=== PATIENT | female | born 1990 | race Caucasian/White ===

== ENCOUNTER 2020-05-11 21:47 | Inpatient (IN) ==
[2020-05-11] MEDS ORDERED: MEPERIDINE 50 MG/1 ML VIAL IV PRN (22:00)
[2020-05-11] MEDS ORDERED: BUTORPHANOL 2 MG/ML VIAL IV PRN (22:00)
[2020-05-11] MEDS ORDERED: LACTATED RINGERS 1,000 ML IV SCH (22:00)
[2020-05-11] MEDS ORDERED: ONDANSETRON 4 MG/2 ML VIAL IV PRN (22:00)
[2020-05-11 23:03] LABS: Basophils # 0.1 10*3/uL (0.0-0.2); Basophils % 0.5 % (0.0-0.8); Eosinophils # 0.1 10*3/uL (0.0-0.87); Hematocrit 36.4 VOL% (35.7-47.0); Hemoglobin 11.6 GM/DL (12.0-16.0); Immature Granulocytes % 1.4 %; Immature Granulocytes Absolute 0.18 #; Lymphocytes # 2.7 10*3/uL (1.4-4.0); Mean Corpuscular HGB Conc 31.9 GM/DL (32-36); Mean Corpuscular Volume 84.7 FL (87-102); Mean Platelet Volume 9.2 FL (9.6-12.0); Monocytes % 8.5 % (1.7-12.7); Neutrophils % 67.6 % (38.7-73.9); Platelet Count 278 T/CUMM (130-400); Red Cell Distribution Width 15.9 % (9.3-17.3); White Blood Count 12.7 T/CUMM (4-12)
[2020-05-12] MEDS: CLINDAMYCIN INJ 900 MG in PREMIX 1 EACH IV SCH ×2 (08:40→19:03)
[2020-05-12] MEDS ORDERED: OXYTOCIN/LR 20 UNIT/1,000 ML BAG IV SCH (10:00)
[2020-05-12] MEDS ORDERED: ePHEDrine 50 MG/ML VIAL IV PRN (10:05)
[2020-05-12] MEDS ORDERED: FAMOTIDINE 20 MG/2 ML VIAL IV ONE (10:05)
[2020-05-12] MEDS ORDERED: hydrOXYzine HCL 25 MG/1 ML VIAL IM PRN (10:05)
[2020-05-12] MEDS ORDERED: diphenhydrAMINE 50 MG/1 ML VIAL IV PRN ×2 (10:05)
[2020-05-12] MEDS ORDERED: CITRIC ACID/SODIUM CITRATE 30 ML UDCUP PO ONE (10:05)
[2020-05-12] MEDS ORDERED: LACTATED RINGERS 250 ML IV PRN (10:05)
[2020-05-12] MEDS ORDERED: ONDANSETRON 4 MG/2 ML VIAL IV ONE (10:05)
[2020-05-12] MEDS ORDERED: LACTATED RINGERS 1,000 ML IV ONE (10:05)
[2020-05-12] MEDS ORDERED: PROMETHAZINE 25 MG/1 ML VIAL IM ONE (10:05)
[2020-05-12] MEDS ORDERED: NALOXONE 0.4 MG/ML VIAL IV PRN (10:05)
[2020-05-12] MEDS ORDERED: fentaNYL 2 MCG/ROPIV 0.2% EPID 100 ML EPIDURAL SCH (10:30)
[2020-05-12] MEDS ORDERED: LACTATED RINGERS 1,000 ML IV SCH (10:30)
[2020-05-12 12:47] LABS: Glucose,Urine (UA) Negative (Negative); Protein,Urine 1+ MG/DL; Urine Appearance Clear (Clear); Urine Color Yellow (Yellow)
[2020-05-12 12:48] LABS: Bacteria,Urine Few /HPF (Few); Bilirubin,Urine Negative (Negative); Blood, Urine Negative (Negative); Ketones,Urine 1+ mg/dL (Negative); Nitrite,Urine Negative (Negative); RBC,Urine Rare /HPF (0-4); Squamous Epithelial Cell,Urine Rare /HPF (0-10); Urine Urobilinogen < 2.0 EU/DL (0.2-1.0); WBC,Urine Rare /HPF (0-6)
[2020-05-12] MEDS ORDERED: miSOPROStoL 200 MCG TABLET ONE (14:18)
[2020-05-12] MEDS ORDERED: OXYTOCIN/LR 20 UNIT/1,000 ML BAG IV ONE ×2 (14:18→17:43)
[2020-05-12] MEDS ORDERED: TRANEXAMIC ACID 1,000 MG/10 ML VIAL ONE (14:18)
[2020-05-12] MEDS ORDERED: METHYLERGONOVINE 0.2 MG/1 ML AMP ONE (14:18)
[2020-05-12] MEDS ORDERED: CARBOPROST TROMETHAMINE 250 MCG/ML AMP IM ONE (14:18)
[2020-05-12 17:25] LABS: Cord Arterial Blood HCO3 16.9 MMOL/L
[2020-05-12 17:26] LABS: Cord Venous Blood HCO3 21.2 MMOL/L; Cord Venous Blood PCO2 40.9 MMHG; Cord Venous Blood PO2 25.8 MMHG
[2020-05-12] MEDS ORDERED: ACETAMINOPHEN 325 MG TABLET PO PRN (17:43)
[2020-05-12] MEDS ORDERED: MEASLES/MUMPS/RUBELLA VACCINE 0.5 ML VIAL SUBCUT ONE (17:43)
[2020-05-12] MEDS ORDERED: WITCH HAZEL PADS 100/JAR TOP PRN (17:43)
[2020-05-12] MEDS ORDERED: LANOLIN 50% CREAM 0.3 OZ TUBE TOP PRN (17:43)
[2020-05-12] MEDS ORDERED: BENZOCAINE 20%/MENTHOL 0.5% SPRAY 56 GM CAN TOP PRN (17:43)
[2020-05-12] MEDS ORDERED: DIPH/TET/ACEL PERT BOOSTER VACCINE 0.5 ML VIAL IM ONE (17:43)
[2020-05-12] MEDS ORDERED: HYDROCORTISONE 2.5% RECTAL CREAM 30 GM TUBE TOP PRN (17:43)
[2020-05-12] MEDS ORDERED: ONDANSETRON 4 MG/2 ML VIAL IV PRN (17:43)
[2020-05-12] MEDS ORDERED: BISACODYL 10 MG SUPP RECTAL PRN (17:43)
[2020-05-12] MEDS ORDERED: RHO(D) IMMUNE GLOBULIN 300 MCG SYRINGE IM ONE (17:43)
[2020-05-12] MEDS ORDERED: oxyCODONE/ACETAMINOPHEN 5-325 MG TABLET PO PRN (17:43)
[2020-05-12] MEDS: DOCUSATE SODIUM 100 MG CAPSULE PO SCH (21:26)
[2020-05-12] MEDS: IBUPROFEN 800 MG TABLET PO PRN (21:26)
[2020-05-12] MEDS: oxyCODONE/ACETAMINOPHEN 5-325 MG TABLET PO PRN (21:27)
[2020-05-12] MEDS ORDERED: oxyCODONE/ACETAMINOPHEN 5-325 MG TABLET PO ONE (22:48)
[2020-05-13 04:59] LABS: Basophils # 0.1 10*3/uL (0.0-0.2); Basophils % 0.6 % (0.0-0.8); Eosinophils # 0.1 10*3/uL (0.0-0.87); Eosinophils % 0.7 % (0.00-10.9); Hematocrit 31.2 VOL% (35.7-47.0); Hemoglobin 10.1 GM/DL (12.0-16.0); Immature Granulocytes % 1.3 %; Lymphocytes # 2.6 10*3/uL (1.4-4.0); Lymphocytes % 16.4 % (21.3-54.2); Mean Corpuscular HGB Conc 32.4 GM/DL (32-36); Mean Corpuscular Volume 84.3 FL (87-102); Mean Platelet Volume 9.5 FL (9.6-12.0); Monocytes % 7.9 % (1.7-12.7); Neutrophils % 73.1 % (38.7-73.9); Platelet Count 225 T/CUMM (130-400); White Blood Count 15.7 T/CUMM (4-12)
[2020-05-13] MEDS: DOCUSATE SODIUM 100 MG CAPSULE PO SCH ×2 (08:50→20:25)
[2020-05-13] MEDS: IBUPROFEN 800 MG TABLET PO PRN ×2 (10:23→20:25)
[2020-05-13] MEDS: oxyCODONE/ACETAMINOPHEN 5-325 MG TABLET PO PRN ×2 (10:24→20:25)
[2020-05-14] MEDS: IBUPROFEN 800 MG TABLET PO PRN (04:48)
[2020-05-14 10:22] VITALS: BP 118/69
[2020-05-14] MEDS: DOCUSATE SODIUM 100 MG CAPSULE PO SCH (10:40)
== END 2020-05-14 14:10 | disposition home or self-care (01) | DRG 806 ==
LOC: N.LDOUT 21:47 → N.LD 21:49 → N.OB 05-12 21:35
PROVIDERS: ADMIT Specialist; ATTEND Specialist